=== PATIENT | male | born 1970 | race Caucasian/White ===

== ENCOUNTER 2023-02-26 08:57 | Emergency (ER) | payer MEDICAID, SELFPAY ==
--- NOTE | ~2023-02-26 | XR_ITS ---
EXAMINATION: XR CHEST CLINICAL INFORMATION: Chest pain COMPARISON: None available. TECHNIQUE: 2 views of the chest were obtained. FINDINGS: No significant abnormality is noted involving the heart, lungs, mediastinum, bony thorax or soft tissues. Slight loss of height of the superior endplate of the T8 vertebral body questionable for old mild compression fracture. XR/XR chest 2V IMPRESSION: No evidence for acute disease in the chest.
[2023-02-26 09:25] VITALS: BP 128/80; PULSE 71; RESP 20; TEMP 36.5; O2SAT 98; BMI 19.6
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
== END 2023-02-26 10:45 | disposition home or self-care (01) ==
PROVIDERS: Emergency Provider Emergency Medicine
DX: J45.909 Unspecified asthma, uncomplicated (principal); R06.02 Shortness of breath; T59.811A Toxic effect of smoke, accidental (unintentional), initial encounter; J70.5 Respiratory conditions due to smoke inhalation; Y92.89 Other specified places as the place of occurrence of the external cause
CPT/HCPCS: 71046; 99283

== ENCOUNTER 2023-03-04 08:38 | Emergency (ER) | payer MEDICAID, SELFPAY ==
--- NOTE | ~2023-03-04 | XR_ITS ---
EXAMINATION: XR CHEST CLINICAL INFORMATION: Cough. COMPARISON: 12/27/2022 chest radiographs. TECHNIQUE: 2 views of the chest were obtained. FINDINGS: Mild hazy opacification is seen posteriorly in the left suprahilar region. The right lung appears clear. There are no pleural effusions. The heart and mediastinal structures are unremarkable. XR/XR chest 2V IMPRESSION: Mild hazy opacification posteriorly in the suprahilar region may be projectional representing summation artifact, but appears increased compared to the previous study. Further evaluation with a chest CT scan is recommended
[2023-03-04 08:41] VITALS: BP 116/72; PULSE 70; RESP 18; TEMP 36.6; O2SAT 97; BMI 19.6
[2023-03-04 10:17] LABS: COVID-19 Test Negative (Negative); IDNOW Serial# 9DB6401D
[2023-03-04 10:29] VITALS: BP 116/77; PULSE 57; RESP 16; TEMP 36.3; O2SAT 99
--- NOTE | 2023-03-04 11:55 | ED_ITS ---
HPI - URI/Sore Throat General Chief Complaint: Upper Respiratory Symptoms Stated Complaint: resp issues Time Seen by Provider: 03/04/23 09:19 History of Present Illness HPI Narrative: Patient complains of cough with sputum body aches fatigue, and nasal congestion making it difficult to breathe at night through his nose, there is no other shortness of breath, no chest pain no difficulty breathing no abdominal pain no nausea vomiting or diarrhea, no leg swelling no calf pain or swelling no rash Related Data Previous Rx's Medication Instructions Recorded albuterol sulfate 90 mcg/actuation 2 puff inhalation Q4-6H PRN 02/26/23 aerosol inhaler (Ventolin HFA) shortness of breath or wheezing #8.5 grams azithromycin 250 mg tablet See Rx Instructions PO .COMPLEX #6 02/26/23 (Zithromax Z-Kahlil) tabs prednisone 20 mg tablet 40 mg PO DAILY #10 tabs 02/26/23 albuterol sulfate 90 mcg/actuation 2 puff inhalation Q4-6H PRN 03/04/23 aerosol inhaler shortness of breath or wheezing #6.7 grams amoxicillin 875 mg-potassium 1 tab PO Q12H 7 days #14 tabs 03/04/23 clavulanate 125 mg tablet cetirizine 10 mg tablet 10 mg PO DAILY PRN allergy 03/04/23 symptoms #30 tabs ibuprofen 600 mg tablet 600 mg PO Q6H PRN fever or pain 03/04/23 #20 tabs oxymetazoline 0.05 % nasal spray 2 spray intranasal Q12H PRN nasal 03/04/23 congestion 5 days #15 mL prednisone 20 mg tablet 60 mg PO DAILY 4 days #12 tabs 03/04/23 Allergies Allergy/AdvReac Type Severity Reaction Status Date / Time Sulfa (Sulfonamide Allergy Anaphylaxis Verified 02/26/23 09:28 Antibiotics) [facility] Past Medical History Source: nursing notes reviewed Social History Social History Advance Directives: No Physical Exam Vital Signs: Vital Signs: Last Vital Signs Temp 97.4 F 03/04/23 10:29 Pulse 57 03/04/23 10:29 Resp 16 03/04/23 10:29 BP 116/77 03/04/23 10:29 Pulse Ox 99 03/04/23 10:29 O2 Del Method Room Air 03/04/23 10:29 BMI result Body Mass Index 19.6 General appearance is no acute distress Eyes no redness or discharge The sinuses do have tenderness and there is increased pain when he lowers his head, the nose is very congested The pharynx is clear without redness swelling or exudate The chest is clear with full symmetric equal breath sounds Heart no murmur Abdomen soft nontender Extremities full range of motion x4 without calf tenderness or swelling no edema Skin no rash Course Course Course Narrative: COVID test negative Chest x-ray showed a mild hazy opacification in the suprahilar region and recommended outpatient CT for further evaluation and patient is informed Otherwise well-appearing patient is discharged on Augmentin for possible pneumonia, he was treated with Z-Kahlil last week for same condition and patient breathing easily ambulating easily is discharged Medical Decision Making Lab Data Labs: Lab Results 03/04/23 Range/Units 09:48 COVID-19 ([facility]JA) Negative (Negative) COVID-19 Clin Com See Note Discharge Plan Discharge Clinical Impression: Bronchitis Patient Disposition: Home, Self-Care Additional Instructions: Use albuterol if needed for wheezing I wrote for Augmentin which is good for sinusitis or if there is a developing pneumonia Your x-ray showed an opacity that needs to be further evaluated as an outpatient with a CT scan so when you go back to [place] follow with primary doctor to arrange that Afrin spray is the strongest decongestant and you can use 2 to force brace in each nostril, make sure it does not go down her throat Maximum use is 5 or 6 days as it could have a rebound effect where it may actually make congestion worse after about a week Return any time any worse condition or any concerns Prescriptions: New albuterol sulfate 90 mcg/actuation HFA aerosol inhaler 2 puff inhalation Q4-6H PRN (Reason: shortness of breath or wheezing) Qty: 6.7 0RF oxymetazoline 0.05 % spray,non-aerosol 2 spray intranasal Q12H PRN (Reason: nasal congestion) 5 Days Qty: 15 0RF cetirizine 10 mg tablet 10 mg PO DAILY PRN (Reason: allergy symptoms) Qty: 30 0RF amoxicillin-pot clavulanate 875-125 mg tablet 1 tab PO Q12H 7 Days Qty: 14 0RF prednisone 20 mg tablet 60 mg PO DAILY 4 Days Qty: 12 0RF ibuprofen 600 mg tablet 600 mg PO Q6H PRN (Reason: fever or pain) Qty: 20 0RF No Action prednisone 20 mg tablet 40 mg PO DAILY Qty: 10 0RF azithromycin [Zithromax Z-Kahlil] 250 mg tablet See Rx Instructions .ROUTE .COMPLEX Qty: 6 0RF Rx Instructions: take 500 mg today (day 1), then 250 mg for 4 days (days 2-5) albuterol sulfate [Ventolin HFA] 90 mcg/actuation HFA aerosol inhaler 2 puff inhalation Q4-6H PRN (Reason: shortness of breath or wheezing) Qty: 8.5 0RF Interventions: ED Discharge Assessment Last Done: 03/04/23 12:06 Discharge Date/Time: 03/04/23 12:06
== END 2023-03-04 12:06 | disposition home or self-care (01) ==
PROVIDERS: Physician Assistant Medical; Emergency Provider Emergency Medicine Emergency Medical Services
DX: J40 Bronchitis, not specified as acute or chronic (principal); Z20.822 Contact with and (suspected) exposure to COVID-19; Z20.828 Contact with and (suspected) exposure to other viral communicable diseases
CPT/HCPCS: 71046; 87635; 99282; 99283